=== PATIENT | female | born 1955 | race African-American/Black ===

== ENCOUNTER 2017-03-02 09:50 | Emergency (ER) | payer BC ==
[~2017-03-02] VITALS: Ht 167.6 cm; Wt 69.3 kg
[~2017-03-02 09:50] MED LIST: CARDIZEM LA360 MG PO; HYDROCHLOROTH12.5 M1 PO; PRAVACHOL80 MG PO; ZESTRIL,PRINIVI40 MG PO
[2017-03-02] MEDS ORDERED: NEURONTIN300 MG PO (10:30)
[2017-03-02] MEDS ORDERED: PREDNISONE50 MG PO (10:30)
[2017-03-02 10:56] VITALS: BP 122/70
== END 2017-03-02 10:57 | disposition home or self-care (01) ==
LOC: EME 09:50
DX: S54.01XA Injury of ulnar nerve at forearm level, right arm, initial encounter (principal); I11.0 Hypertensive heart disease with heart failure; I50.9 Heart failure, unspecified; J44.9 Chronic obstructive pulmonary disease, unspecified; Z85.9 Personal history of malignant neoplasm, unspecified; Z86.73 Personal history of transient ischemic attack (TIA), and cerebral infarction without residual deficits; F17.200 Nicotine dependence, unspecified, uncomplicated; Z88.5 Allergy status to narcotic agent; Z88.8 Allergy status to other drugs, medicaments and biological substances
CPT/HCPCS: 99281; 99284